=== PATIENT | female | born 1950 | race Two or more races ===

== ENCOUNTER 2023-03-15 16:49 | Emergency (ER) | payer OTHER ==
[~2023-03-15] VITALS: Ht 154.9 cm; Wt 56.2 kg
[2023-03-15] MEDS ORDERED: METFORMIN HCL500 MG (17:03)
[2023-03-15] MEDS ORDERED: CLONAZEPAM0.125 MG PO (17:03)
[2023-03-16] MEDS ORDERED: MIRALAX510 GM PO (05:28)
== END 2023-03-16 07:09 ==
LOC: ER 16:49
DX: K59.00 Constipation, unspecified (principal); R10.9 Unspecified abdominal pain; E11.9 Type 2 diabetes mellitus without complications; Z79.84 Long term (current) use of oral hypoglycemic drugs; K57.90 Diverticulosis of intestine, part unspecified, without perforation or abscess without bleeding
CPT/HCPCS: 74018; 74176; 96365; 96366; 99284; J7042